=== PATIENT | female | born 2000 | race Caucasian/White ===

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

== ENCOUNTER 2020-10-26 08:15 | Day surgery (SDC) | payer OTHER ==
[~2020-10-26 08:15] MED LIST changes: +CONCERTA36 MG PO
[2020-10-26] MEDS ORDERED: PERCOCET 5/325M1 TAB PO (10:02)
[2020-10-26 10:34] VITALS: BP 128/59
== END 2020-10-26 10:50 | disposition home or self-care (01) ==
LOC: ORM 08:15
PROVIDERS: ATTEND Surgery
DX: L05.91 Pilonidal cyst without abscess (principal); E06.3 Autoimmune thyroiditis
CPT/HCPCS: C9290

== ENCOUNTER 2021-08-08 11:35 | Emergency (ER) | payer OTHER ==
[2021-08-08] VITALS (16 sets, daily range): BP systolic 115–147; BP diastolic 69–90
[~2021-08-08] VITALS: Ht 162.6 cm; Wt 105.0 kg
[~2021-08-08 11:35] MED LIST changes: +PERCOCET 5/325M1 TAB PO
[2021-08-08] MEDS ORDERED: AMOXICILLIN500 M2 PO (16:06)
[2021-08-08] MEDS ORDERED: ZOFRAN4 MG/TAB PO (16:06)
== END 2021-08-08 16:45 | disposition home or self-care (01) | DRG 153 ==
LOC: ED 11:35
DX: H66.93 Otitis media, unspecified, bilateral (principal); Z20.822 Contact with and (suspected) exposure to COVID-19

== ENCOUNTER 2021-08-30 20:41 | Emergency (ER) | payer OTHER ==
[~2021-08-30] VITALS: Ht 162.6 cm; Wt 108.8 kg
[~2021-08-30 20:41] MED LIST changes: +AMOXICILLIN500 M2 PO; +ZOFRAN4 MG/TAB PO
[2021-08-30 21:18] LABS: URINE BILIRUBIN - DIPSTICK NEGATIVE (NEGATIVE); URINE BLOOD DIPSTICK NEGATIVE (NEGATIVE); URINE COLOR YELLOW; URINE GLUCOSE - DIPSTICK NEGATIVE (NEGATIVE); URINE KETONE NEGATIVE (NEGATIVE); URINE LEUK ESTERASE NEGATIVE (NEGATIVE); URINE PH 7.5 (4.5-8.0); URINE PROTEIN - DIPSTICK 30 mg/dL (NEG-TRACE); URINE UROBILINOGEN - DIPSTICK 0.2 E.U./dL (0.2)
[2021-08-30 21:29] LABS: URINE NITRITE - DIPSTICK NEGATIVE (Negative)
[2021-08-30 21:33] LABS: URINE AMORPH SEDIMENT MODERATE hpf (NONE-FEW); URINE RBC 0-2 RBC/hpf (0-5); URINE SQUAMOUS EPITHELIAL CELL FEW EPI/hpf (0-FEW); URINE WBC 0-2 WBC/hpf (0-5)
[2021-08-30 21:45] LABS: HEMATOCRIT 38.5 % (37.0-47.0); HEMOGLOBIN 12.9 g/dl (12.0-16.0); IMMATURE GRANULOCYTES 0.2 % (0.0-5.0); MEAN CELL VOLUME 87.5 fL CALC (80.0-100.0); MEAN CORPUSCULAR HGB 29.3 pG CALC (26.0-32.0); MEAN CORPUSCULAR HGB CONC 33.5 g/dL CAL (32.0-36.0); NEUT# 8.71 thou/uL (2.00-7.15); RED BLOOD COUNT 4.4 mill/uL (4.20-5.60); RED CELL DISTRI WIDTH 11.9 % (11.5-15.5)
[2021-08-30 22:00] VITALS: BP 130/86
[2021-08-30 22:00] LABS: ALKALINE PHOSPHATASE 62 u/l (38-126); AMYLASE 86 u/l (30-110); BILIRUBIN, TOTAL 0.4 mg/dL (0.0-1.4); BUN 8 mg/dL (7-17); BUN/CREATININE RATIO 17 (12-20 (CALC)); CHLORIDE 107 mmol/l (95-108); CREATININE 0.5 mg/dL (0.5-1.0); GFR FOR AFR.AMER. > 60 ML/MIN (>=60 (CALC)); GFR OTHER RACES > 60 ML/MIN (>=60 (CALC)); LIPASE 492 u/l (23-300); SGOT/AST 19 u/l (14-36); SODIUM 133 mmol/l (137-146); TOTAL PROTEIN 6.7 g/dL (6.3-8.2)
[2021-08-30 22:01] LABS: ANION GAP 10 (6-22 (CALC)); CARBON DIOXIDE 20 mmol/l (22-30)
[2021-08-30 22:30] VITALS: BP 123/85
[2021-08-30 22:30] LABS: TSH, 3RD GENERATION 3.07 uIU/mL (0.47 - 4.68)
[2021-08-30 23:00] VITALS: BP 118/70
[2021-08-30 23:30] VITALS: BP 123/85
[2021-08-30] MEDS ORDERED: PROCHLORPER25 MG RE (23:39)
[2021-08-31 00:11] VITALS: BP 123/85
== END 2021-08-31 00:11 | disposition home or self-care (01) | DRG 833 ==
LOC: ED 20:41
PROVIDERS: Family Medicine
DX: O21.0 Mild hyperemesis gravidarum (principal); O99.281 Endocrine, nutritional and metabolic diseases complicating pregnancy, first trimester; E06.3 Autoimmune thyroiditis; Z3A.10 10 weeks gestation of pregnancy; Z20.822 Contact with and (suspected) exposure to COVID-19

== ENCOUNTER 2021-09-14 00:18 | Emergency (ER) | payer OTHER ==
[2021-09-14] VITALS (7 sets, daily range): BP systolic 114–135; BP diastolic 66–84
[~2021-09-14] VITALS: Ht 162.6 cm; Wt 111.0 kg
[~2021-09-14 00:18] MED LIST changes: +PROCHLORPER25 MG RE
[2021-09-14 00:58] LABS: HEMATOCRIT 37.9 % (37.0-47.0); HEMOGLOBIN 12.7 g/dl (12.0-16.0); IMMATURE GRANULOCYTES 0.3 % (0.0-5.0); MEAN CELL VOLUME 86.9 fL CALC (80.0-100.0); MEAN CORPUSCULAR HGB 29.1 pG CALC (26.0-32.0); MEAN CORPUSCULAR HGB CONC 33.5 g/dL CAL (32.0-36.0); NEUT# 7.5 thou/uL (2.00-7.15); RED BLOOD COUNT 4.36 mill/uL (4.20-5.60); RED CELL DISTRI WIDTH 12.1 % (11.5-15.5)
[2021-09-14 01:10] LABS: ALBUMIN 3.9 g/dL (3.2-5.0); ALKALINE PHOSPHATASE 57 u/l (38-126); ANION GAP 10 (6-22 (CALC)); BILIRUBIN, TOTAL 0.4 mg/dL (0.0-1.4); BUN 7 mg/dL (7-17); BUN/CREATININE RATIO 14 (12-20 (CALC)); CARBON DIOXIDE 24 mmol/l (22-30); CHLORIDE 106 mmol/l (95-108); CREATININE 0.5 mg/dL (0.5-1.0); GFR FOR AFR.AMER. > 60 ML/MIN (>=60 (CALC)); GFR OTHER RACES > 60 ML/MIN (>=60 (CALC)); POTASSIUM 3.8 mmol/l (3.5-5.1); SGOT/AST 18 u/l (14-36); SODIUM 135 mmol/l (137-146)
[2021-09-14] MEDS ORDERED: PHENERGAN25 MG RE (02:48)
[2021-09-14 03:16] LABS: URINE BILIRUBIN - DIPSTICK NEGATIVE (NEGATIVE); URINE BLOOD DIPSTICK TRACE-INTACT (NEGATIVE); URINE COLOR YELLOW; URINE GLUCOSE - DIPSTICK NEGATIVE (NEGATIVE); URINE KETONE 15 mg/dL (NEGATIVE); URINE LEUK ESTERASE TRACE (NEGATIVE); URINE PROTEIN - DIPSTICK TRACE mg/dL (NEG-TRACE); URINE SPECIFIC GRAVITY 1.015; URINE UROBILINOGEN - DIPSTICK 0.2 E.U./dL (0.2)
[2021-09-14 03:19] LABS: URINE NITRITE - DIPSTICK NEGATIVE (Negative)
== END 2021-09-14 03:40 | disposition home or self-care (01) | DRG 833 ==
LOC: ED 00:18
PROVIDERS: Family Medicine
DX: O21.0 Mild hyperemesis gravidarum (principal); O99.281 Endocrine, nutritional and metabolic diseases complicating pregnancy, first trimester; E06.3 Autoimmune thyroiditis; Z3A.12 12 weeks gestation of pregnancy
CPT/HCPCS: S0164

== ENCOUNTER 2021-11-15 19:10 | Emergency (ER) | payer OTHER ==
[2021-11-15] VITALS (11 sets, daily range): BP systolic 131–142; BP diastolic 70–86
[~2021-11-15] VITALS: Ht 162.6 cm; Wt 115.0 kg
[~2021-11-15 19:10] MED LIST changes: +PHENERGAN25 MG RE
[2021-11-15 20:15] LABS: URINE BILIRUBIN - DIPSTICK NEGATIVE (NEGATIVE); URINE BLOOD DIPSTICK TRACE-INTACT (NEGATIVE); URINE COLOR YELLOW; URINE GLUCOSE - DIPSTICK NEGATIVE (NEGATIVE); URINE KETONE 15 mg/dL (NEGATIVE); URINE LEUK ESTERASE NEGATIVE (NEGATIVE); URINE PROTEIN - DIPSTICK TRACE mg/dL (NEG-TRACE); URINE SPECIFIC GRAVITY >=1.030; URINE UROBILINOGEN - DIPSTICK 0.2 E.U./dL (0.2)
[2021-11-15 20:18] LABS: URINE NITRITE - DIPSTICK NEGATIVE (Negative)
[2021-11-15 20:22] LABS: HEMATOCRIT 36.4 % (37.0-47.0); HEMOGLOBIN 12.2 g/dl (12.0-16.0); IMMATURE GRANULOCYTES 0.7 % (0.0-5.0); MEAN CELL VOLUME 86.1 fL CALC (80.0-100.0); MEAN CORPUSCULAR HGB 28.8 pG CALC (26.0-32.0); MEAN CORPUSCULAR HGB CONC 33.5 g/dL CAL (32.0-36.0); NEUT# 11.31 thou/uL (2.00-7.15); RED BLOOD COUNT 4.23 mill/uL (4.20-5.60); RED CELL DISTRI WIDTH 12.7 % (11.5-15.5)
[2021-11-15 20:27] LABS: ALBUMIN 4.1 g/dL (3.2-5.0); ALKALINE PHOSPHATASE 70 u/l (38-126); AMYLASE 89 u/l (30-110); ANION GAP 13 (6-22 (CALC)); BILIRUBIN, TOTAL 0.3 mg/dL (0.0-1.4); BUN 9 mg/dL (7-17); BUN/CREATININE RATIO 18 (12-20 (CALC)); CARBON DIOXIDE 23 mmol/l (22-30); CHLORIDE 105 mmol/l (95-108); CREATININE 0.5 mg/dL (0.5-1.0); GFR FOR AFR.AMER. > 60 ML/MIN (>=60 (CALC)); GFR OTHER RACES > 60 ML/MIN (>=60 (CALC)); LIPASE 446 u/l (23-300); POTASSIUM 3.8 mmol/l (3.5-5.1); SGOT/AST 23 u/l (14-36); SODIUM 136 mmol/l (137-146); TOTAL PROTEIN 7.5 g/dL (6.3-8.2)
[2021-11-15] MEDS ORDERED: ONDANSETRON4 MG PO (21:20)
== END 2021-11-15 22:28 | disposition home or self-care (01) | DRG 833 ==
LOC: ED 19:10
PROVIDERS: Emergency Medicine
DX: O21.0 Mild hyperemesis gravidarum (principal); O99.212 Obesity complicating pregnancy, second trimester; E06.3 Autoimmune thyroiditis; E66.9 Obesity, unspecified; Z3A.20 20 weeks gestation of pregnancy

== ENCOUNTER 2023-04-10 01:02 | Emergency (ER) | payer OTHER ==
[~2023-04-10] VITALS: Ht 162.6 cm; Wt 95.0 kg
[~2023-04-10 01:02] MED LIST changes: +ONDANSETRON4 MG PO
[2023-04-10 01:22] VITALS: BP 136/86
[2023-04-10 01:45] VITALS: BP 125/74
[2023-04-10 02:00] VITALS: BP 134/94
[2023-04-10 02:15] VITALS: BP 132/80
[2023-04-10 02:55] LABS: URINE BILIRUBIN - DIPSTICK Negative (NEGATIVE); URINE BLOOD DIPSTICK Negative (NEGATIVE); URINE GLUCOSE - DIPSTICK Negative (NEGATIVE); URINE KETONE Negative (NEGATIVE); URINE LEUK ESTERASE Negative (NEGATIVE); URINE NITRITE - DIPSTICK Negative (Negative); URINE PROTEIN - DIPSTICK Negative (NEG-TRACE); URINE UROBILINOGEN - DIPSTICK 0.2 E.U./dL (0.2)
[2023-04-10 03:05] LABS: BASO% 0.4 % (0-3); EOS% 1.2 % (0-8); IMMATURE GRANULOCYTES 0.2 % (0.0-5.0); LYMPH% 34.9 % (15-41); MEAN CELL VOLUME 84.2 fL CALC (80.0-100.0); MEAN CORPUSCULAR HGB 28.6 pG CALC (26.0-32.0); MEAN CORPUSCULAR HGB CONC 33.9 g/dL CAL (32.0-36.0); NEUT# 3.07 thou/uL (2.00-7.15); NEUT% 54.3 % (42-76); RED BLOOD COUNT 5.18 mill/uL (4.20-5.60); RED CELL DISTRI WIDTH 11.8 % (11.5-15.5); URINE COLOR Yellow
[2023-04-10 03:09] LABS: HEMATOCRIT 43.6 % (37.0-47.0); HEMOGLOBIN 14.8 g/dl (12.0-16.0)
[2023-04-10 03:11] LABS: ALBUMIN 4.7 g/dL (3.2-5.0); ANION GAP 12 (6-22 (CALC)); BUN 9 mg/dL (7-17); BUN/CREATININE RATIO 12 (12-20 (CALC)); CARBON DIOXIDE 24 mmol/l (22-30); CHLORIDE 109 mmol/l (95-108); CREATININE 0.7 mg/dL (0.5-1.0); GFR FOR AFR.AMER. > 60 ML/MIN (>=60 (CALC)); GFR OTHER RACES > 60 ML/MIN (>=60 (CALC)); POTASSIUM 3.3 mmol/l (3.5-5.1); SGOT/AST 30 u/l (14-36); SODIUM 142 mmol/l (137-146); TOTAL PROTEIN 7.4 g/dL (6.3-8.2)
[2023-04-10 03:20] LABS: ALKALINE PHOSPHATASE 108 u/l (38-126); BILIRUBIN, TOTAL 0.5 mg/dL (0.02-1.3)
[2023-04-10 05:39] VITALS: BP 132/80
== END 2023-04-10 05:39 | disposition home or self-care (01) | DRG 880 ==
LOC: ED 01:02
PROVIDERS: Internal Medicine
DX: F41.9 Anxiety disorder, unspecified (principal); E87.6 Hypokalemia; R82.5 Elevated urine levels of drugs, medicaments and biological substances